=== PATIENT | female | born 1980 | race African-American/Black ===

== ENCOUNTER 2021-05-08 10:16 | Emergency (ER) | payer OTHER ==
[~2021-05-08] VITALS: Ht 160 cm; Wt 66.0 kg
[2021-05-08] MEDS ORDERED: ONDANSETRON PF 4 MG/2 ML VIAL. IVP ONE (10:45)
[2021-05-08] MEDS ORDERED: KETOROLAC 30 MG/ML VIAL. IVP ONE (10:45)
[2021-05-08] MEDS ORDERED: IV NORMAL SALINE 1,000ML 1,000 ML IV ONE (10:45)
--- NOTE | 2021-05-08 10:52 | PHYS DOC ---
Past History Past Medical History: No Pertinent History (PABLO SAM APRN) Past Surgical History: , Other Additional Past Surgical Histo: left foot (PABLO SAM APRN) Smoking: Non-smoker Alcohol Use: None Drug Use: None (PABLO SAM APRN) General Adult EDM: Chief Complaint: ABDOMINAL PAIN HPI: HPI: Patient is a 40-year-old female that presents today with upper abdominal pain. Patient states pain started around 830 this morning she states that it was a sudden onset she did have a warm flush feeling and a lot of nausea, she described the pain as a wave contractions in nature. Patient states that she had some tea around 630 this morning and then had a fruit and veggie smoothie around 8:00 this morning as well. Patient states she has never had pain like this in the past and does not have a history of heartburn on a regular basis. Patient states she has had 1 stool today and she described it as not normal for herself. Patient states she has not vomited just feels nauseated. Patient denies chest pain, shortness of air, or fever and chills. (PABLO SAM APRN) Review of Systems: Review of Systems: Constitutional: Denies fever or chills Eyes: Denies change in visual acuity HENT: Denies nasal congestion or sore throat Respiratory: Denies cough or shortness of breath Cardiovascular: Denies chest pain or edema GI: abdominal pain, nausea, denies vomiting, bloody stools or diarrhea : Denies dysuria Musculoskeletal: Denies back pain or joint pain Integument: Denies rash Neurologic: Denies headache, focal weakness or sensory changes Endocrine: Denies polyuria or polydipsia Lymphatic: Denies swollen glands Psychiatric: Denies depression or anxiety (PABLO SAM APRN) Allergies: Allergies: Allergies Coded Allergies Type Severity Reaction Last Updated Verified No Known Drug Allergies 05/08/21 No (PABLO SAM APRN) Physical Exam: PE: Constitutional: Well developed, well nourished, mild distress, non-toxic appearance. [] HENT: Normocephalic, atraumatic, bilateral external ears normal, oropharynx moist, no oral exudates, nose normal. [] Eyes: PERRLA, EOMI, conjunctiva normal, no discharge. [] Neck: Normal range of motion, no tenderness, supple, no stridor. [] Cardiovascular:Heart rate regular rhythm, no murmur [] Lungs & Thorax: Bilateral breath sounds clear to auscultation [] Abdomen: Bowel sounds hyperactive, soft, tenderness upper abdomen, no masses, no pulsatile masses. [] Skin: Warm, dry, no erythema, no rash. [] Back: No tenderness, no CVA tenderness. [] Extremities: No tenderness, no cyanosis, no clubbing, ROM intact, no edema. [] Neurologic: Alert and oriented X 3, normal motor function, normal sensory function, no focal deficits noted. [] Psychologic: Affect normal, judgement normal, mood normal. [] (PABLO SAM APRN) Current Patient Data: Labs: Laboratory Tests Test 05/08/21 10:35 05/08/21 10:55 05/08/21 11:08 Urine Collection Type Unknown Urine Color Yellow Urine Clarity Hazy Urine pH 7.0 Urine Specific [place] 1.025 Urine Protein Neg Urine Glucose (UA) Neg mg/dL Urine Ketones (Stick) Neg mg/dL Urine Blood Neg Urine Nitrite Neg Urine Bilirubin Neg Urine Urobilinogen Dipstick 0.2 mg/dL Urine Leukocyte Esterase Small Urine RBC 1-2 /HPF Urine WBC 1-4 /HPF Urine Squamous Epithelial Cells Many /LPF Urine Bacteria 0 /HPF Urine Mucus Slight /LPF White Blood Count 5.9 x10^3/uL Red Blood Count 4.32 x10^6/uL Hemoglobin 12.8 g/dL Hematocrit 38.7 % Mean Corpuscular Volume 90 fL Mean Corpuscular Hemoglobin 30 pg Mean Corpuscular Hemoglobin Concent 33 g/dL Red Cell Distribution Width 14.5 % Platelet Count 266 x10^3/uL Neutrophils (%) (Auto) 69 % Lymphocytes (%) (Auto) 23 % Monocytes (%) (Auto) 7 % Eosinophils (%) (Auto) 1 % Basophils (%) (Auto) 1 % Neutrophils # (Auto) 4.1 x10^3uL Lymphocytes # (Auto) 1.3 x10^3/uL Monocytes # (Auto) 0.4 x10^3/uL Eosinophils # (Auto) 0.0 x10^3/uL Basophils # (Auto) 0.0 x10^3/uL Sodium Level 143 mmol/L Potassium Level 4.2 mmol/L Chloride Level 106 mmol/L Carbon Dioxide Level 28 mmol/L Anion Gap 9 Blood Urea Nitrogen 14 mg/dL Creatinine 0.8 mg/dL Estimated GFR (Cockcroft-Gault) 95.6 BUN/Creatinine Ratio 18 Glucose Level 92 mg/dL Calcium Level 8.7 mg/dL Total Bilirubin 0.2 mg/dL Aspartate Amino Transf (AST/SGOT) 20 U/L Alanine Aminotransferase (ALT/SGPT) 23 U/L Alkaline Phosphatase 37 U/L Total Protein 6.1 g/dL Albumin 3.6 g/dL Albumin/Globulin Ratio 1.4 Lipase 78 U/L Bedside Urine HCG, Qualitative hcg negative Current Medications Medications (Trade) Dose Ordered Sig/Malini Route PRN Reason Start Time Stop Time Status Last Admin Dose Admin Sodium Chloride 1,000 ml @ 1,000 mls/hr 1X ONCE IV 05/08/21 10:45 05/08/21 11:45 DC 05/08/21 10:52 Ondansetron HCl (Zofran) 4 mg 1X ONCE IVP 05/08/21 10:45 05/08/21 10:47 DC 05/08/21 10:53 Ketorolac Tromethamine (Toradol 30mg Vial) 30 mg 1X ONCE IVP 05/08/21 10:45 05/08/21 10:48 DC 05/08/21 10:54 Vital Signs: Vital Signs Date Time Temp Pulse Resp B/P (MAP) Pulse Ox O2 Delivery O2 Flow Rate FiO2 05/08/21 12:00 62 16 112/68 (83) 100 05/08/21 10:25 98.2 53 14 136/44 (74) 98 Vital Signs Date Time Temp Pulse Resp B/P (MAP) Pulse Ox O2 Delivery O2 Flow Rate FiO2 05/08/21 10:25 98.2 53 14 136/44 (74) 98 (PABLO SAM APRN) EKG: EKG: [] (PABLO SAM APRN) Radiology/Procedures: Radiology/Procedures: REASON: upper abdominal pain with nausea PROCEDURE: ABDOMEN OR LWR BACK LTD EXAMINATION: US ABDOMEN OR LOWER BACK LIMITED INDICATION: 40 years, Female, upper abdominal pain with nausea. COMPARISON: None TECHNIQUE: Grayscale, color Doppler and limited spectral Doppler images of the right upper quadrant were obtained. FINDINGS: LIVER: SIZE (LENGTH): 14.5 cm. ECHOGENICITY: Normal PARENCHYMA: Homogeneous echotexture. No discrete focal lesion. INTRAHEPATIC BILE DUCTS: Nondilated. PORTAL VEIN: Patent with normal hepatopedal flow. GALLBLADDER: GALLBLADDER WALL THICKNESS: 1.7 mm MORPHOLOGY: Normal morphology. No wall hyperemia or pericholecystic free fluid. LUMEN: Normal. COMMON BILE DUCT DIAMETER: 2.9 mm RIGHT KIDNEY: MEASURES: 9.9 cm cm in length. MORPHOLOGY/PARENCHYMA: Normal corticomedullary differentiation with no shadowing calculus or discrete masses. COLLECTING SYSTEM: No hydronephrosis. PANCREAS: VISUALIZED PORTIONS: Head and body APPEARANCE: Within normal limits. OTHER: RETROPERITONEUM, INFERIOR VENA CAVA: Normal caliber. FLUID:No free fluid. IMPRESSION: Unremarkable right upper quadrant ultrasound. Electronically signed by: Tres Young DO (05/08/2021 11:17 AM) [facility] REASON: LEFT UPPER QUADRANT PAIN - RADIATES TO RIGHT UPPER PROCEDURE: KUB EXAM: Abdomen, single view HISTORY: Pain. COMPARISON: None. FINDINGS: Frontal views of the abdomen are obtained. There is gas and stool within the colon. There are nonspecific air-filled loops of small bowel within the midabdomen. There is no evidence of obstruction. IMPRESSION: Nonobstructive bowel gas pattern. Electronically signed by: Gema Mendieta MD (05/08/2021 11:57 AM) [id number] (PABLO SAM APRN) Heart Score: C/O Chest Pain: N/A Risk Factors: Risk Factors: DM, Current or recent (<one month) smoker, HTN, HLP, family history of CAD, obesity. Risk Scores: Score 0 - 3: 2.5% MACE over next 6 weeks - Discharge Home Score 4 - 6: 20.3% MACE over next 6 weeks - Admit for Clinical Observation Score 7 - 10: 72.7% MACE over next 6 weeks - Early Invasive Strategies (PABLO SAM APRN) Course & Med Decision Making: Course & Med Decision Making Pertinent Labs and Imaging studies reviewed. (See chart for details) 1205 patient states her pain has improved, reviewed radiological and laboratory results with patient did inform her that they are all within normal limits, patient denies painful or frequency in urination at this time. I will not treat her for urinary tract infection since she is not having any symptoms. Did inform her that she had large amount of gas and stool in her colon which is indicated by the KUB and that some of her pain can be related to just gas pain. Patient is instructed to increase her fruits and vegetables, increase her fluids, and if she has any nausea or vomiting just stick with clear liquids. Patient verbalized understanding of this agreeable to the plan of care. (PABLO SAM APRN) Dragon Disclaimer: Dragon Disclaimer: This electronic medical record was generated, in whole or in part, using a voice recognition dictation system. (PABLO SAM APRN) Attending Co-Sign The patient was seen and interviewed as well as examined at the bedside. The chart was reviewed. The case was discussed. Agree with the plan of care. (SU OGDEN DO) Departure Departure: Impression: Primary Impression: Abdominal pain Qualified Codes: R10.11 - Right upper quadrant pain Disposition: HOME / SELF CARE / HOMELESS Condition: STABLE Referrals: PCP,NO (PCP) Patient Instructions: Abdominal Pain Additional Instructions: Increase by mouth fluids Follow-up with your primary care physician if your pain continues Return to the emergency department if your pain localizes to the right lower quadrant, he develop a fever, or you are unable to take any by mouth fluids without vomiting. PABLO SAM APRN May 08, 2021 10:52 SU OGDEN DO May 09, 2021 06:13
[2021-05-08 11:17] LABS: BASO % 1 % (0-3); EOS % 1 % (0-3); HEMATOCRIT 38.7 % (36.0-47.0); HEMOGLOBIN 12.8 g/dL (12.0-15.5); LYMPH # 1.3 x10^3/uL (1.0-4.8); LYMPH % 23 % (24-48); MEAN CORPUSCULAR HEMOGLOBIN 30 pg (25-35); MEAN CORPUSCULAR HGB CONC 33 g/dL (31-37); MEAN CORPUSCULAR VOLUME 90 fL (79-100); MONO # 0.4 x10^3/uL (0.0-1.1); MONO % 7 % (0-9); NEUT # 4.1 x10^3uL (1.8-7.7); NEUT % 69 % (31-73); PLATELET COUNT 266 x10^3/uL (140-400); RED BLOOD COUNT 4.32 x10^6/uL (3.50-5.40); RED CELL DISTRIBUTION WIDTH 14.5 % (11.5-14.5); WHITE BLOOD COUNT 5.9 x10^3/uL (4.0-11.0)
--- NOTE | 2021-05-08 11:20 | RAD ---
EXAMINATION: US ABDOMEN OR LOWER BACK LIMITED INDICATION: 40 years, Female, upper abdominal pain with nausea. COMPARISON: None TECHNIQUE: Grayscale, color Doppler and limited spectral Doppler images of the right upper quadrant w ere obtained. FINDINGS: LIVER: SIZE (LENGTH): 14.5 cm. ECHOGENICITY: Normal PARENCHYMA: Homogeneous echotexture. No discrete focal lesion. INTRAHEPATIC BILE DUCTS: Nondilated. PORTAL VEIN: Patent with normal hepatopedal flow. GALLBLADDER: GALLBLADDER WALL THICKNESS: 1.7 mm MORPHOLOGY: Normal morphology. No wall hyperemia or pericholecystic free fluid. LUMEN: Normal. COMMON BILE DUCT DIAMETER: 2.9 mm RIGHT KIDNEY: MEASURES: 9.9 cm cm in length. MORPHOLOGY/PARENCHYMA: Normal corticomedullary differentiation with no shadowing calculus or discrete masses. COLLECTING SYSTEM: No hydronephrosis. PANCREAS: VISUALIZED PORTIONS: Head and body APPEARANCE: Within normal limits. OTHER: RETROPERITONEUM, INFERIOR VENA CAVA: Normal caliber. FLUID:No free fluid. IMPRESSION: Unremarkable right upper quadrant ultrasound. Electronically signed by: Tres Young DO (05/08/2021 11:17 AM) [facility]
[2021-05-08 11:46] LABS: CLARITY,URINE HAZY; COLOR,URINE YELLOW; GLUCOSE,URINE NEG (NEG)
[2021-05-08 11:47] LABS: BACTERIA,URINE 0 /HPF (0-FEW); NITRITE,URINE NEG (NEG); SQUAMOUS EPITHELIAL CELL,UR MANY /LPF; UROBILINOGEN,URINE 0.2 mg/dL (0.2 mg/dL)
[2021-05-08 11:50] LABS: CALCIUM 8.7 mg/dL (8.5-10.1); CREATININE 0.8 mg/dL (0.6-1.0); GFR 95.6; POTASSIUM 4.2 mmol/L (3.5-5.1)
[2021-05-08 11:55] LABS: ALBUMIN 3.6 g/dL (3.4-5.0); ALBUMIN/GLOBULIN RATIO 1.4 (1.0-1.7); TOTAL BILIRUBIN 0.2 mg/dL (0.2-1.0); TOTAL PROTEIN 6.1 g/dL (6.4-8.2)
--- NOTE | 2021-05-08 11:59 | RAD ---
EXAM: Abdomen, single view HISTORY: Pain. COMPARISON: None. FINDINGS: Frontal views of the abdomen are obtained. There is gas and stool within the colon. There a re nonspecific air-filled loops of small bowel within the midabdomen. There is no evidence of obstruc tion. IMPRESSION: Nonobstructive bowel gas pattern. Electronically signed by: Gema Mendieta MD (05/08/2021 11:57 AM) [id number]
[2021-05-08 12:00] VITALS: BP 112/68
== END 2021-05-08 12:25 | disposition home or self-care (01) ==
LOC: ER 10:27
DX: R10.11 Right upper quadrant pain (principal); Z98.890 Other specified postprocedural states
CPT/HCPCS: 36415; 74018; 76705; 80053; 81001; 81025; 83690; 85025; 87086; 96361; 96374; 96375; 99285; J1885; J2405; J7030